=== PATIENT | male | born 1975 | race Caucasian/White ===

== ENCOUNTER 2024-03-13 17:14 | Emergency (ER) | payer MEDICAID ==
[~2024-03-13] VITALS: Ht 167.6 cm; Wt 68.0 kg
[2024-03-13 17:15] VITALS: BP_SYST 145; PULSE 85; RESP 16; TEMP 97.9; O2SAT 100
[2024-03-13 21:23] VITALS: BP_SYST 145; PULSE 84; RESP 17; TEMP 97.9; O2SAT 97
== END 2024-03-13 21:23 | disposition home or self-care (01) ==
LOC: SED 17:14
DX: I10 Essential (primary) hypertension (principal); F17.200 Nicotine dependence, unspecified, uncomplicated
CPT/HCPCS: 99281